=== PATIENT | male | born 1945 ===

== ENCOUNTER 2016-12-07 11:33 | Emergency (ER) | payer MEDICARE, OTHER ==
--- NOTE | 2016-12-07 12:10 | C.PDOC ---
History Of Present Illness 71 yr old male with PMHx of Chronic lower back pain, presents to the ER for evaluation of left sided lower back pain, exacerbated for the past 1 month. Patient reports the pain is mostly localized and will radiate to the left leg intermittently. Patient admits to similar symptoms in the past. Denies trauma, injury, nausea, vomiting, abdominal pain, diarrhea, constipation, dysuria, incontinence, saddle anesthesia, weakness or numbness. Time Seen by Provider: 12/07/16 11:50 Chief Complaint (Nursing): Back Pain History Per: Patient History/Exam Limitations: no limitations Onset/Duration Of Symptoms: Other (Exacerbated for 1 month ) Current Symptoms Are (Timing): Still Present Past Medical History Reviewed: Historical Data, Nursing Documentation, Vital Signs Vital Signs: Last Vital Signs Temp 98.7 F 12/07/16 12:48 Pulse 88 12/07/16 12:48 Resp 18 12/07/16 12:48 BP 134/88 12/07/16 12:48 Pulse Ox 100 12/07/16 12:48 - Medical History PMH: Diabetes, HTN, Hypercholesterolemia Family History: States: No Known Family Hx - Social History Hx Alcohol Use: Yes Hx Substance Use: No Review Of Systems Except As Marked, All Systems Reviewed And Found Negative. Gastrointestinal: Negative for: Nausea, Vomiting, Abdominal Pain, Diarrhea, Constipation Genitourinary: Negative for: Dysuria, Incontinence Musculoskeletal: Positive for: Back Pain (Left sided lower back pain. ), Other ( No saddle anesthesia. ) Neurological: Negative for: Weakness, Numbness Physical Exam - Physical Exam Appears: Well, Non-toxic, No Acute Distress Skin: Warm, Dry, No Rash Oral Mucosa: Moist Throat: Normal, No Erythema, No Exudate Neck: Supple Chest: Symmetrical, No Tenderness Cardiovascular: Rhythm Regular, No Murmur Respiratory: No Rales, No Rhonchi, No Stridor, No Wheezing Gastrointestinal/Abdominal: Soft, No Tenderness, No Organomegaly, No Distention , No Guarding Back: No CVA Tenderness, No Vertebral Tenderness, Paraspinal Tenderness (Left paraspinal lumbar tenderness with mod muscle spasm. No midine tenderness, (-) skin changes.), Straight Leg Raising (Right-at 60 degrees, left- at 40 degrees.) Extremity: No Pedal Edema, No Calf Tenderness, No Deformity, No Swelling Pulses: Left Dorsalis Pedis: Normal, Right Dorsalis Pedis: Normal Neurological/Psych: Oriented x3, Normal Speech, Normal Motor, Normal Sensation, Normal Reflexes ED Course And Treatment O2 Sat by Pulse Oximetry: 98 Pulse Ox Interpretation: Normal - Other Rad L-spine X-Ray: Read By Radiologist Interpretation: no acute fx or sublux, (+) DJD Progress Note: On re-eavluation, pt is afebrile, hemodynamicaly stable. Non- toxic. Ambulatory in ED with stable gait. Neck: (-) meningeals ign. ENT: brennan cute finidngs. Abd: benign. Back: (-) CVA tenderness. UA results review- noraml. FSBS 110. L-spine xray review and no acute fx or sublux noted, (+) DJD. Pt has clinical findings c/w lumbar radiculopathy. Pt advised and ref. to F/u with PMD, PM in 2-3 days for re-eavluation. Rteurn to Ed if any worsening or new changes. Medical Decision Making Medical Decision Making: PLAN: * X-Ray - LS Spine * Accu Check * Urinalysis * Percocet PO * Toradol IM Disposition Counseled Patient/Family Regarding: Studies Performed, Diagnosis, Need For Followup, Rx Given - Disposition Referrals: [facility] [Outside] [facility] [Provider Group] [facility] [Provider Group] Disposition: HOME/ ROUTINE Disposition Time: 12:59 Condition: STABLE Additional Instructions: No physical activity for 1 week, avoid lifting, bending forward, etc take pain medication as prescribed Follow up with PMD, and Pain management for further evaluation and pain control. Return to ED if any worsening or new changes. Prescriptions: Ibuprofen [Motrin Tab] 600 mg PO Q6 #14 tab Methocarbamol [Robaxin] 500 mg PO TID #14 tab traMADol [Ultram] 50 mg PO TID #10 tab Instructions: Lumbar Radiculopathy (ED) Print Language: LATVIAN - Clinical Impression Clinical Impression: Lumbar radiculopathy - PA / LICENSED MORTICIAN / Resident Statement MD/DO has reviewed & agrees with the documentation as recorded. - Scribe Statement The provider has reviewed the documentation as recorded by the Scribe Sierra Alan All medical record entries made by the Scribe were at my direction and personally dictated by me. I have reviewed the chart and agree that the record accurately reflects my personal performance of the history, physical exam, medical decision making, and the department course for this patient. I have also personally directed, reviewed, and agree with the discharge instructions and disposition.
[2016-12-07] MEDS ORDERED: Oxycodone/Acetaminophen 5/325 mg Tab PO STA (12:20)
[2016-12-07] MEDS ORDERED: Oxycodone/Acetaminophen 5/325 mg Tab ONE (12:24)
[2016-12-07 12:34] LABS: RBC URINE < 1 /hpf (0-3); URINE BILIRUBIN NEGATIVE (NEGATIVE); URINE BLOOD NEGATIVE (NEGATIVE); URINE COLOR Yellow (YELLOW); URINE GLUCOSE (UA) 3+ mg/dL (Normal); URINE KETONE NEGATIVE (NEGATIVE); URINE LEUKOCYTE ESTERASE NEG Leu/uL (Negative); URINE PROTEIN NEGATIVE (NEGATIVE); URINE UROBILINOGEN NORMAL mg/dL (0.2-1.0); WBC URINE 1 /hpf (0-5)
--- NOTE | 2016-12-07 13:10 | RAD ---
PROCEDURE: Radiographs of the Lumbar Spine. HISTORY: pain COMPARISON: No prior. FINDINGS: BONES: The vertebral bodies are maintained in height. The transverse processes and posterior elements appear intact. Normal alignment is maintained. DISC SPACES: There is narrowing of the L4-5 intervertebral disc space consistent with degenerative disc disease. The remaining disc spaces are maintained in height. OTHER FINDINGS: None. IMPRESSION: Degenerative disc disease at L4-5. Otherwise unremarkable.
[2016-12-07 13:15] VITALS: BP 130/70; PULSE 80; RESP 17; TEMP 97.8; O2SAT 100
== END 2016-12-07 13:14 | disposition home or self-care (01) ==
LOC: C.ER 11:33
DX: M54.16 Radiculopathy, lumbar region (principal)
CPT/HCPCS: 72100; 81001; 82948; 96372; 99284; J1885

== ENCOUNTER 2017-05-08 15:42 | Emergency (ER) | payer OTHER ==
[2017-05-08 15:49] VITALS: BMI 25.6
[2017-05-08 15:52] VITALS: TEMP 97.6
[2017-05-08 16:31] LABS: CHLORIDE 100 mmol/L (98-107); POTASSIUM 3.8 mmol/L (3.6-5.2); SODIUM 135 mmol/L (132-148)
[2017-05-08 16:32] LABS: BASO % 0.7 % (0.0-2.0); EOS # 0.1 K/uL (0.0-0.7); EOS % 1.5 % (0.0-4.0); HEMATOCRIT 42.2 % (35.0-51.0); LYMPH # 2.4 K/uL (1.0-4.3); LYMPH % 39.9 % (20.0-40.0); MEAN CELL VOLUME 87.1 fL (80.0-94.0); MEAN CORPUSCULAR HEMOGLOBIN 29.6 pg (27.0-31.0); MEAN PLATELET VOLUME 7.7 fL (7.2-11.7); MONO # 0.4 K/uL (0.0-0.8); MONO % 5.8 % (0.0-10.0); NRBC % 0.1 % (0.0-2.0); RED CELL DISTRIBUTION WIDTH 14.3 % (11.5-14.5); WHITE BLOOD COUNT 6.1 K/uL (4.8-10.8)
[2017-05-08 16:33] LABS: GFR AFRICAN-AMERICAN > 60
[2017-05-08 16:34] LABS: ALKALINE PHOSPHATASE 35 U/L (38-126); ALT/SGPT 33 U/L (21-72); AST/SGOT 21 U/L (17-59); BILIRUBIN,TOTAL 0.7 mg/dL (0.2-1.3); BLOOD UREA NITROGEN 22 mg/dL (9-20); CALCIUM 8.9 mg/dl (8.6-10.4); CARBON DIOXIDE 23 mmol/L (22-30); GLUCOSE,RANDOM 93 mg/dL (75-110); TOTAL PROTEIN 6.4 g/dL (6.3-8.3)
--- NOTE | 2017-05-08 16:55 | RAD ---
PROCEDURE: CHEST RADIOGRAPH, 1 VIEW HISTORY: Left chest pain COMPARISON: None available. FINDINGS: LUNGS: No consolidation. A benign-appearing calcified granuloma left upper lung zone noted. PLEURA: No pneumothorax or pleural fluid seen. CARDIOVASCULAR: Normal. OSSEOUS STRUCTURES: Thoracic spondylosis. Bilateral shoulder arthrosis. VISUALIZED UPPER ABDOMEN: Normal. OTHER FINDINGS: Asymmetrically elevated right hemidiaphragm IMPRESSION: No acute cardiopulmonary pathology noted
[2017-05-08] MEDS ORDERED: Iodixanol 320 MG/ML 100 ML BOTTLE IV ONE (17:39)
[2017-05-08 18:50] VITALS: PULSE 76
--- NOTE | 2017-05-08 18:57 | CT ---
PROCEDURE: CT Chest with contrast (Pulmonary Angiogram) HISTORY: Left chest pain, r/o PE COMPARISON: May 08, 2017. single-view chest. TECHNIQUE: Axial computed tomography images were obtained of the chest in the pulmonary arterial phase of enhancement. Coronal and sagittal reformatted images were created and reviewed. Intravenous contrast dose: 100 cc Visipaque 320. Mean Hounsfield unit values in the main pulmonary artery: 218.80 Radiation dose: Total exam DLP = 489.42 mGy-cm. This CT exam was performed using one or more of the following dose reduction techniques: Automated exposure control, adjustment of the mA and/or kV according to patient size, and/or use of iterative reconstruction technique. FINDINGS: PULMONARY ARTERIES: Unremarkable. No pulmonary embolism. AORTA: No acute findings. No thoracic aortic aneurysm. LUNGS: No nodule, mass or pulmonary consolidation. Incidental finding(s): Subcentimeter calcified granulomas. Parabronchial thickening, findings suggestive of lower airway disease, bronchitis PLEURAL SPACES: Unremarkable. No effusion or pneuomothorax. HEART: Unremarkable. No cardiomegaly. No significant pericardial effusion. LYMPH NODES: No lymphadenopathy. BONES, CHEST WALL: Unremarkable. No fracture or destructive lesion OTHER FINDINGS: Calcified granulomas in the liver and spleen. Simple cyst Projecting off the lateral aspect of the right kidney 4.6 x 6.1 cm. IMPRESSION: Unremarkable CT pulmonary angiogram. No pulmonary embolus. Additional benign and/or incidental findings described above.
--- NOTE | 2017-05-08 20:00 | C.PDOC ---
Time Seen by Provider: 05/08/17 16:00 Chief Complaint (Nursing): Chest Pain History Per: Patient, Family Onset/Duration Of Symptoms: Days (1), Intermittent Episodes Current Symptoms Are (Timing): Still Present Severity: Moderate Quality: Sharp, "Pain" Modifying Factors: Other Indicated Below Alleviating Factors: None Additional History Per: Prior Records Past Medical History Reviewed: Historical Data, Nursing Documentation, Vital Signs Vital Signs: Last Vital Signs Temp 97.6 F 05/08/17 15:43 Pulse 76 05/08/17 18:49 Resp 16 05/08/17 18:49 BP 117/77 05/08/17 18:49 Pulse Ox 97 05/08/17 20:02 - Medical History PMH: Diabetes, HTN, Hypercholesterolemia Family History: States: Unknown Family Hx - Social History Hx Alcohol Use: Yes Hx Substance Use: No - Immunization History Hx Influenza Vaccination: Yes Hx Pneumococcal Vaccination: Yes Review Of Systems Except As Marked, All Systems Reviewed And Found Negative. Constitutional: Negative for: Fever, Weakness Cardiovascular: Positive for: Chest Pain (left side) Respiratory: Negative for: Shortness of Breath, Hemoptysis Gastrointestinal: Negative for: Vomiting, Abdominal Pain Musculoskeletal: Negative for: Neck Pain, Back Pain, Leg Pain Skin: Negative for: Rash Neurological: Negative for: Weakness, Numbness Physical Exam - Physical Exam Appears: Non-toxic, No Acute Distress Skin: Normal Color, Warm, Dry, No Rash Head: Atraumatic, Normacephalic Eye(s): bilateral: Normal Inspection, PERRL, EOMI Neck: Normal ROM, Supple Cardiovascular: Rhythm Regular Respiratory: Normal Breath Sounds, No Accessory Muscle Use Gastrointestinal/Abdominal: Soft, No Tenderness Back: No CVA Tenderness Extremity: Normal ROM, No Pedal Edema, No Calf Tenderness Neurological/Psych: Oriented x3, Normal Motor, Normal Sensation ED Course And Treatment - Laboratory Results Result Diagrams: 05/08/17 16:19 05/08/17 16:19 ECG: Interpreted By Me, Viewed By Me ECG Rhythm: Sinus Rhythm ECG Interpretation: No Acute Changes Rate From EC O2 Sat by Pulse Oximetry: 97 Pulse Ox Interpretation: Normal - Radiology CXR: Viewed By Me, Read By Radiologist CXR Interpretation: Yes: No Acute Disease - CT Scan/US CTA of chest Other Rad Studies (CT/US): Read By Radiologist, Radiology Report Reviewed CT/US Interpretation: IMPRESSION: Unremarkable CT pulmonary angiogram. No pulmonary embolus. Additional benign and/or incidental findings described above. Progress Note: Pt states he took Aspirin at home today. I want to keep pt for observation for further evaluation and to rule out acute MT, however pt is not willing to stay in the hospital any longer. He wants to go home right now even after I explained to him that he may still be suffering from a heart attack or other lifethreating condition. Against Medical Advice - AMA Patient Left Against Medical Advice: The patient declines admission to the hospital and wishes to leave the Emergency Department. This action is against my medical advice. This decision was made with informed refusal. The patient was told that admission to the hospital is necessary. Explanation of the reasons why were discussed. The risks of leaving were explained to the patient and include, but are not limited to, worsening of known or currently unknown conditions, permanent disability and from undiagnosed or untreated conditions. The patient has the capacity to make this informed decision and understands my explanation of the current medical problem and risks of leaving. The patient voluntarily accepts these risks and signed an AMA form documenting our conversation. The patient was given the opportunity to ask questions and reconsider. The patient was encouraged to return to the Emergency Department at any time for further care. Disposition Counseled Patient/Family Regarding: Studies Performed, Diagnosis, Need For Followup - Disposition Referrals: Amari Cordero MD [Medical Doctor] - Disposition: AGAINST MEDICAL ADVICE Disposition Time: 20:01 Condition: GUARDED Additional Instructions: Follow up with your doctor as soon as possible. Return to the ER if you change your mind or develop shortness or breath, dizziness, worsening of symptoms or if you have any other concerns. Instructions: Chest Pain (ED), Against Medical Advice (ED) Forms: Cole Martin (Palauan) Print Language: GUYANESE - Clinical Impression Clinical Impression: Left sided chest pain, Left against medical advice
[2017-05-08 20:13] VITALS: BP 120/79; RESP 18
[2017-05-08 20:14] VITALS: O2SAT 97
--- NOTE | 2017-05-10 17:38 | CARD ---
APPROVED REPORT EKG Measurement Heart [id number] TN [id number] <Conclusion> Normal sinus rhythm Normal ECG
== END 2017-05-08 20:48 | disposition left against medical advice (07) ==
LOC: C.ER 15:42
DX: R07.9 Chest pain, unspecified (principal); Z53.21 Procedure and treatment not carried out due to patient leaving prior to being seen by health care provider
CPT/HCPCS: 71010; 71275; 80053; 84484; 85025; 85378; 85610; 85730; 93005; 99285; Q9967